=== PATIENT | female | born 1970 | race Caucasian/White ===

== ENCOUNTER → 2016-06-24 | Outpatient (CLI) | payer BC ==
[2016-06-24 11:25] LABS: ALT/SGPT 17 U/L (12-78); BLOOD UREA NITROGEN 10 mg/dl (7-18); BUN/CREATININE RATIO 10.9 (10-20); CALCIUM 8.7 mg/dl (8.5-10.1); CARBON DIOXIDE 25 mmol/L (21-32); CHLORIDE 105 mmol/L (98-107); CHOLESTEROL 203 mg/dl (0-200); CREATININE 0.94 mg/dl (0.60-1.20); GLUCOSE 93 mg/dl (70-99); POTASSIUM 4.1 mmol/L (3.5-5.1); SODIUM 138 mmol/L (136-145); TRIGLYCERIDES 115 mg/dl (0-150); VERY LOW DENSITY LIPOPROT CALC 23 mg/dl
[2016-06-24 11:36] LABS: ALB/GLOB RATIO 1.2 (0.9-2); ALKALINE PHOSPHATASE 63 U/L (45-117); AST/SGOT 13 U/L (15-37); CHOLESTEROL/HDL RATIO 2.4; HDL CHOLESTEROL 84 mg/dl; LDL CHOLESTEROL CALCULATED 96 mg/dl
== END | disposition home or self-care (01) ==
LOC: C.LABBC 09:12
PROVIDERS: ATTEND Internal Medicine Geriatric Medicine
DX: Z00.00 Encounter for general adult medical examination without abnormal findings (principal); R53.83 Other fatigue

== ENCOUNTER → 2016-06-25 | Outpatient (CLI) | payer BC ==
--- NOTE | 2016-06-25 13:36 | DIAGNOSTIC IMAGING REPORT ---
Ultrasound left thigh LEFT EXTREMITY NONVASCULAR LIMITED CLINICAL HISTORY: LEFT PROXIMAL LATERAL LEG; LOCALIZED SWELLING/MASS mass TECHNIQUE: Ultrasound COMPARISON STUDY: None FINDINGS: Echogenic subcutaneous nodule measuring 2.5 x 1.5 cm. There are no fluid components. IMPRESSION: Findings consistent with a lipoma of the subcutaneous tissues Electronically signed by: Kyle Henry M.D. 06/25/2016 1:35 PM Dictated Date/Time: 06/25/2016 1:34 PM
== END | disposition home or self-care (01) ==
LOC: C.ULTRBC 13:09
PROVIDERS: ATTEND Internal Medicine Geriatric Medicine
DX: R22.40 Localized swelling, mass and lump, unspecified lower limb (principal)

== ENCOUNTER → 2016-07-23 | Outpatient (CLI) | payer BC | END | disposition home or self-care (01) | LOC: C.PATHSPEC 17:15 | PROVIDERS: ATTEND Surgery | DX: R22.40 Localized swelling, mass and lump, unspecified lower limb (principal) ==

== ENCOUNTER → 2016-10-14 | Outpatient (CLI) | payer BC | END | disposition home or self-care (01) | LOC: C.PAPS 13:45 | PROVIDERS: ATTEND Obstetrics & Gynecology | DX: Z01.419 Encounter for gynecological examination (general) (routine) without abnormal findings (principal) ==